=== PATIENT | female | born 1940 | race Caucasian/White ===

== ENCOUNTER 2017-05-01 08:00 | Day surgery (SDC) | payer MEDICARE, OTHER ==
[~2017-05-01] VITALS: Ht 157.5 cm; Wt 69.8 kg
[~2017-05-01 08:00] MED LIST: ALENDRONATE SOD10 MG PO; ALEVE220 M1; ASPIR 8181 MG PO; BACTRIM DS TAB1 EACH PO; CALCIUM600 MG PO; FENOFIBRATE145 MG PO; FENOGLIDE120 MG PO; FENOGLIDE40 MG PO; FISH OIL500 MG PO; FLAGYL500 MG PO; FOSAMAX5 MG PO; LISINOPRIL-HCT1 EACH PO; LUTEIN20 M1 PO; MELOXICAM15 MG PO; MULTI VITAMIN1 EACH PO; OXYCODONE HCL5 MG PO; PREVACID30 MG PO; PROBIOTIC1 EAC1 PO; VITAMIN B12-FO1 EACH; VITAMIN C1000 M1 PO; VITAMIN D1000 UNIT PO; ZESTRIL20 MG PO
[2017-05-01] MEDS ORDERED: NITROSTAT0.4 MG SL (08:29)
--- NOTE | 2017-05-01 09:57 | NUR ---
05/01/17 0957 Bre Brown 4892-PATIENT ARRIVED TO PACU ON 3L NC O2 SAT 100% PATIENT REACTIVE TO VOICE OPENS EYES. DENIES PAIN OR NAUSEA. ABDOMEN SOFT.
--- NOTE | 2017-05-01 11:35 | OR ---
[facility] [address] [facility] [place] [address] Signed DATE OF OPERATION: 05/01/2017 SURGEON: Ambika Flaherty MD PREOPERATIVE DIAGNOSES: 1. Recent treated recurrent diverticulitis. 2. Family history of colon cancer. POSTOPERATIVE DIAGNOSIS: Sigmoid diverticulosis. No evidence of polyps, cancer, or ongoing inflammation. PROCEDURE: Total colonoscopy to cecum. ANESTHESIA: Intravenous sedation, fentanyl 150 mcg, Versed 5 mg. INDICATION: This 77-year-old white woman is a patient of Sudhir Hale. She has a family history of colon cancer in the past. She was treated for an episode of acute diverticulitis in February and has clinically resolved her symptoms with outpatient therapy of Flagyl and Cipro and a low-fiber diet. She underwent colonoscopy in 2012, confirming diverticulosis. Family history of colon cancer is rather extensive in several male family members [place]. She has recovered from her diverticulitis well and she is now to undergo colonoscopy. She understands the risks of bleeding, infection, and perforation and wished to proceed. FINDINGS: The prep was excellent. Complete colonoscopy was undertaken to the cecum. Passage beyond the hepatic flexure was challenging. It was accomplished with all due care. Numerous diverticula were noted in the sigmoid and left colon. There was no sign of polyps, diverticular formation, residual inflammation of any other kind, and no other problem. DESCRIPTION OF PROCEDURE: The patient was brought to the endoscopy suite and placed in lateral decubitus position given intravenous sedation to the point of slurred speech and nystagmus. Digital rectal examination was normal. An Olympus video colonoscope was passed in the rectum and manipulated throughout the colon ultimately to pass into the hepatic flexure. Passage beyond this area was a bit challenging, ultimately requiring abdominal wall Electronically Signed By: AMBIKA FLAHERTY MD 05/01/17 1135 PATIENT NAME: ALBER VALERIO OPERATIVE REPORT DATE OF : 38 REPORT #: [id number] PHYSICIAN: AMBIKA FLAHERTY MD PCP: SUDHIR HALE REPORT IS CONFIDENTIAL AND NOT TO BE RELEASED WITHOUT AUTHORIZATION [facility] [address] [place], [place] [address] Signed stabilization and so on. Ultimately, it was accomplished safely. The cecum was fully intubated. Irrigation was undertaken and scope was carefully withdrawn. Examination throughout showed no sign of polyps, only diverticular changes of the sigmoid and left colon. Retroflexed view of the rectum was normal as well. The scope was removed. The patient was taken to recovery room in good condition. CONCLUDING DIAGNOSIS: Diverticulosis, sigmoid and left colon. No evidence of polyps. PLAN: High-fiber diet is now recommended. She will follow up as needed otherwise and return to the ongoing care of RYAN Flowers. MD SARA Mortensen/DAYSI /[id number] cc: RYAN Flowers Copies: SUDHIR HALE ~ Electronically Signed By: AMBIKA FLAHERTY MD 05/01/17 1135 PATIENT NAME: VALERIOALBERAROLDO MENSAH OPERATIVE REPORT DATE OF : 38 REPORT #: [id number] PHYSICIAN: AMBIKA FLAHERTY MD PCP: SUDHIR HALE REPORT IS CONFIDENTIAL AND NOT TO BE RELEASED WITHOUT AUTHORIZATION
== END 2017-05-01 11:15 | disposition home or self-care (01) ==
LOC: DS 08:00 → OPS 08:00 → DS 09:00 → OPS 09:00
PROVIDERS: Surgery
PROC: 0DJD8ZZ Inspection of Lower Intestinal Tract, Via Natural or Artificial Opening Endoscopic (ICD-10-PCS; principal; 2017-05-01 09:00)
DX: Z12.11 Encounter for screening for malignant neoplasm of colon (principal); K57.30 Diverticulosis of large intestine without perforation or abscess without bleeding; Z88.8 Allergy status to other drugs, medicaments and biological substances; Z98.890 Other specified postprocedural states; Z90.710 Acquired absence of both cervix and uterus; Z80.0 Family history of malignant neoplasm of digestive organs
CPT/HCPCS: G0105; 99153; G0500; J2250; J3010; J7120

== ENCOUNTER 2017-06-27 09:57 | Emergency (ER) | payer MEDICARE, OTHER ==
[~2017-06-27] VITALS: Ht 157.5 cm; Wt 69.8 kg
[~2017-06-27 09:57] MED LIST changes: +NITROSTAT0.4 MG SL
--- NOTE | 2017-06-27 15:09 | EKG ---
[facility] [address] [facility] [place], [place] [address] Signed Normal sinus rhythm Normal ECG No previous ECGs available Confirmed by MANJINDER GODFREY MD ([id number]) on 06/27/2017 3:09:05 PM Electronically Signed By: MANJINDER GODFREY MD 06/27/17 1509 PATIENT NAME: ALBER VALERIO Electrocardiogram DATE OF : 38 PHYSICIAN: MANJINDER GODFREY MD REPORT #: [id number] REPORT IS CONFIDENTIAL AND NOT TO BE RELEASED WITHOUT AUTHORIZATION
== END 2017-06-27 13:39 | disposition home or self-care (01) ==
LOC: ED 09:57
DX: R07.9 Chest pain, unspecified (principal); I10 Essential (primary) hypertension; M81.0 Age-related osteoporosis without current pathological fracture; Z88.8 Allergy status to other drugs, medicaments and biological substances; Z88.2 Allergy status to sulfonamides; Z88.5 Allergy status to narcotic agent; Z79.82 Long term (current) use of aspirin; Z79.899 Other long term (current) drug therapy
CPT/HCPCS: 36415; 71045; 80053; 84484; 85025; 93005; 93010; 99284

== ENCOUNTER 2019-03-30 07:01 | Emergency (ER) | payer MEDICARE, OTHER ==
[~2019-03-30] VITALS: Ht 157.5 cm; Wt 69.8 kg
[~2019-03-30 07:01] MED LIST changes: +GABAPENTIN100 MG PO; +TRAMADOL HCL50 MG PO
[2019-03-30] MEDS ORDERED: NITROGLYCERIN0.4 MG SL (12:07)
--- NOTE | 2019-03-31 11:15 | EKG ---
[facility] [address] [facility] [place] [address] Signed Normal sinus rhythm Normal ECG When compared with ECG of 08-OCT-2018 13:56, Minimal criteria for Anterior infarct are no longer present T wave amplitude has increased in Lateral leads Confirmed by CODY DIAZ DO ([id number]) on 03/31/2019 11:15:22 AM Electronically Signed By: CODY DIAZ DO 03/31/19 1115 PATIENT NAME: ALBER VALERIO Electrocardiogram DATE OF : 38 PHYSICIAN: CODY DIAZ DO REPORT #: [id number] REPORT IS CONFIDENTIAL AND NOT TO BE RELEASED WITHOUT AUTHORIZATION
== END 2019-03-30 12:16 | disposition home or self-care (01) ==
LOC: ED 07:01
DX: R07.9 Chest pain, unspecified (principal); I10 Essential (primary) hypertension; E78.00 Pure hypercholesterolemia, unspecified; Z88.8 Allergy status to other drugs, medicaments and biological substances; Z88.2 Allergy status to sulfonamides; Z88.5 Allergy status to narcotic agent; Z79.899 Other long term (current) drug therapy; Z79.82 Long term (current) use of aspirin
CPT/HCPCS: 71045; 80053; 83735; 84484; 85025; 93005; 93010; 99285-25

== ENCOUNTER 2020-04-26 08:50 | Day surgery (SDC) | payer MEDICARE, OTHER ==
[~2020-04-26] VITALS: Ht 157.5 cm; Wt 68.2 kg
[~2020-04-26 08:50] MED LIST changes: +NITROGLYCERIN0.4 MG SL
--- NOTE | 2020-04-26 12:08 | NUR ---
PATIENT RETURNS FROM IMAGING VIA WHEELCHAIR. I ASSIST HER TO THE BATHROOM AND SHE DOES WELL WITH THAT. SHE IS BACK IN THE STRETCHER AND DR FLAHERTY PRESENTS TO RICKY HER BREAST. IV RECONNECTED AND CALL LIGHT IS WITHIN REACH. DAUGHTER AT THE BEDSIDE.
--- NOTE | 2020-04-26 14:12 | NUR ---
04/26/20 1412 Bre Brown 1406-PATIENT ARRIVED TO PACU ON 6L MASK REACTIVE TO VOICE AND NAME NODDING HEAD NOT FOLLOWING COMMANDS EYES CLOSED. IVF INFUSING SR. 3 INCISION SITES TO RIGHT BREAST CDI. 1411-PATIENT COUGHING HEAD OF BED ELEVATED PATIENT SUCTIONED THIN CLEAR SPUTUM. 6L MASK RR EVEN. PATIENT VERY DROWSY EYES CLOSED.
[2020-04-26] MEDS ORDERED: OXYCODON-ACETA1 EAC2 PO (14:33)
[2020-04-26] MEDS ORDERED: IBUPROFEN600 MG PO (14:33)
[2020-04-26] MEDS ORDERED: ACETAMINOPHEN500 MG PO (14:34)
--- NOTE | 2020-04-26 15:06 | NUR ---
LE 1445: PT ARRIVES ON UNIT FROM PACU VIA STRETCHER. BEDSIDE REPORT RECEIVED AND CARE ASSUMED BY THIS AUTHOR. PT ALERT AND ORIENTED AND CONVERSES WITH RN. CAROL ANN PO INTAKE AND DENIES NAUSEA. DRESSING X3 INTACT WITH ERASER SIZED AMOUNT OF SHADOWING ON EACH ONE. PT REPORTS 5/10 PAIN. RX ADMINISTERED ORDERED AND ICE PACK APPLIED TO SITE. SCDS IN PLACE. IV CONVERTED TO SL. DAUGHTER ATTENTIVE AT THE BEDSIDE. NO NEEDS VOICED, CALL LIGHT WITHIN REACH
--- NOTE | 2020-04-26 15:52 | NUR ---
PT ALERT AND ORIENTED AND COMPLETING SNACK WHILE VISITING WITH DAUGHTER AT THE BEDSIDE. VSS, DRESSINGS REMAINS UNCHANGED. SCDS IN PLACE. PT TO TRY TO VOID AFTER FINISHES SNACK. NO NEEDS VOICED, CALL LIGHT WITHIN REACH
--- NOTE | 2020-04-26 16:53 | NUR ---
DAUGHTER RETURNS FROM PHARMACY. VSS, CMS WNL. PT ALERT AND ORIENTED. SL D/C'D WITH CATH TIP INTACT AND PRESSURE APPLIED TO SITE. DRESSING X3 REMAIN UNCHANGED. PT'S DAUGHTER AT THE BEDSIDE TO HELP HER DRESS FOR D/C. NO NEEDS VOICED AT THIS TIME
--- NOTE | 2020-04-26 17:15 | NUR ---
LE 1510: D/C INSTRUCTIONS PROVIDED AND DISCUSSED ORDERED. PT VOICES UNDERSTANDING AND DENIES QUESTIONS AT THIS TIME. ENCD TO CALL OR RETURN WITH ANY CONCERNS. WHEELED OFF OF UNIT IN W/C BY THIS RN. TRANSFERS INTO VEHICLE INDEPENDENTLY. RESP EVEN AND UNLABORED. NO PHYSICAL S/S OF DISTRESS AT THIS TIME
--- NOTE | 2020-04-27 19:22 | OR ---
[facility] [address] [place], [place] [address] Signed DATE OF OPERATION: 04/26/2020 SURGEON: Ambika Flaherty MD PREOPERATIVE DIAGNOSIS: Right upper outer quadrant infiltrating ductal breast carcinoma. POSTOPERATIVE DIAGNOSIS: 1. Right upper outer quadrant infiltrating ductal breast carcinoma. 2. Negative sentinel lymph nodes on frozen pathology. 3. Large deeply pigmented inframammary crease skin lesion (excised). PROCEDURE: 1. Injection of methylene blue dye for sentinel lymph node identification, right breast. 2. Right deep axillary sentinel lymph node biopsies. 3. Right needle localized partial mastectomy upper outer quadrant. 4. Excision of pigmented skin lesion, right breast 6 cm excision size. ANESTHESIA: General endotracheal, Hair Flor CRNA INDICATIONS: This 80-year-old white woman, she is a patient of RYAN Flowers. She was found on mammogram to have an abnormality in the upper outer aspect of the breast, which was then biopsied under image guidance by Dr. Zacarias, which essentially ablated most of the mass, but did leave microcalcifications in place. A marker was left in place. The pathology report confirmed infiltrating ductal breast carcinoma, it is considered grade 2/3 with micropapillary features. There is no palpable lesion associated with the mass. There is no clinical adenopathy. She is admitted at this time to undergo right needle localized excision of the breast tumor as a partial mastectomy anticipating radiation therapy following that as well as sentinel lymph node biopsy, possible axillary dissection. The risks of bleeding, infection, need for complete axillary dissection, cosmetic deformity, and need for other indicated procedures were all reviewed with her. She understands and wished to proceed. FINDINGS: Relatively large nearly 6 cm deeply pigmented skin lesion was noted in the inframammary crease, which was additionally excised at conclusion of the procedure. Clyde lymph node identification relied primarily on radionuclide as the methylene blue dye did not Electronically Signed By: AMBIKA FLAHERTY MD 03/19/21 1922 PATIENT NAME: ALBER VALERIO OPERATIVE REPORT DATE OF : 38 REPORT #: [id number] PHYSICIAN: AMBIKA FLAHERTY MD PCP: SUDHIR MARTINEZ REPORT IS CONFIDENTIAL AND NOT TO BE RELEASED WITHOUT AUTHORIZATION [facility] [address] [place], [place] [address] Signed uptake to the node to any appreciable extent. As regards to the breast lesion itself, it was well localized with needle localization technique and wide resection undertaken with a clinically negative margin. It was found to be in the excised specimen as anticipated. Frozen pathology of the sentinel lymph node showed no evidence of metastatic disease. Complete excision of the pigmented lesion was accomplished as well. DESCRIPTION OF PROCEDURE: The patient was brought to the operating room after being received from Radiology suite with a wire emanating from the upper outer aspect of the right breast. Clyde lymph node identification with radionuclide had been undertaken as was localization of the lesion in the upper outer aspect of the right breast. She was given a general anesthetic. Preoperative antibiotic Ancef was given. Sequential compression device stockings used and heparin subcutaneously administered. Injection of 1.5 mL of methylene blue dye was injected in the subepithelial space in the upper outer aspect near the areolar margin on the right side. Wire emanated from the upper outer aspect of the right breast. The breast and chest wall, axilla were prepared with a spray Betadine solution and draped sterilely. A C-Trak gamma probe device was covered with a sterile sleeve and interrogation of the right axilla undertaken in the area of maximum uptake identified and a transverse incision was made. Dissection was carried through subcutaneous tissue with sharp and blunt electrocautery dissection. Manipulation of the wound with a tonsil clamp as well as Army-Mimbres retractors was undertaken, but no blue dye lymphatics were identified by that point. Using primarily the C-Trak probe, an area of lymph node tissue was identified and excised and had avid uptake of the radionuclide. This was sent as sentinel lymph node #1. Further dissection was undertaken in the area lateral and inferior was identified again with no blue dye uptake, but certainly with avid signal and this was excised in this node was a bit larger at least 1.5 cm or possibly 2 cm in size. This had very avid uptake of the radionuclide and was sent as sentinel lymph node #2. Additional probing of the axilla showed no other significant activity and the wound was then packed with gauze. Attention was turned towards the breast itself while frozen pathology of sentinel lymph nodes was undertaken. The wire was projected to course inferiorly and slightly laterally from its entry point. An incision was made in the upper outer aspect. Dissection was carried through the dermis with sharp dissection and the wire withdrawn and brought into the wound itself. Electronically Signed By: AMBIKA FLAHERTY MD 04/27/201921 PATIENT NAME: ALBER VALERIO OPERATIVE REPORT DATE OF : 38 REPORT #: [id number] PHYSICIAN: AMBIKA FLAHERTY MD PCP: SUDHIR MARTINEZ REPORT IS CONFIDENTIAL AND NOT TO BE RELEASED WITHOUT AUTHORIZATION [address] [address] Signed An Allis clamp was used to grasp the parenchyma and using meticulous care, wide resection was undertaken of the breast tissue using the wire as a guide. A generous excision was undertaken with a quite obviously clinically negative margin. The specimen was oriented with a short stitch superior and long stitch laterally and passed for specimen radiograph. Irrigation was undertaken. Hemostasis was assured with electrocautery. Parenchymal reapproximation was undertaken with interrupted 2-0 Vicryl suture and an interrupted 2-0 Vicryl in deep dermal layer. Skin was closed with running subcuticular 3-0 Vicryl. Steri-Strips were applied as was an Acticoat dressing. By this point, frozen pathology returned confirming the sentinel nodes had no evidence of metastatic disease. Axillary wound was closed after inspection showing good hemostasis with interrupted 2-0 Vicryl and running subcuticular 3-0 Vicryl. Steri-Strips were applied to that wound as well as an Acticoat dressing. At that point, the specimen radiograph findings returned confirming the specimen did incorporate the microcalcifications and tumor marker as expected. A large pigmented lesion in the inframammary crease was deemed appropriate for excision in part related to its uncertainty as to malignancy, but more dominantly as to the possibility of confounding the future interpretations of radiograph for monitoring of malignancy in the future. On that basis, excision was deemed appropriate. Excision was undertaken with a clinically negative margin. Dissection deeply was below the dermal layer into the subcutaneous space. The wound was closed with interrupted 2-0 Vicryl as well as running subcuticular 3-0 Vicryl. Steri-Strips were applied and another Acticoat dressing applied. The patient tolerated the procedure well, was ultimately extubated and transferred to the recovery room in good condition and suffered no complication. Sponge, needle, and instrument counts reported as correct x3. MD SARA Mortensen/DAYSI /[id number] cc: Milton Nicholas MD, PH.D. Silke Zacarias MD Electronically Signed By: AMBIKA FLAHERTY MD 04/27/201921 PATIENT NAME: ALBER VALERIO OPERATIVE REPORT DATE OF : 38 REPORT #: [id number] PHYSICIAN: AMBIKA FLAHERTY MD PCP: USDHIR MARTINEZ REPORT IS CONFIDENTIAL AND NOT TO BE RELEASED WITHOUT AUTHORIZATION [facility] [address] [place] [id number] Signed RYAN Flowers MD Copies: MILTON NICHOLAS CYNTHIA SUE MD HARRIES, LINDA PA QUACKENBUSH, ROBERT C MD ~ Electronically Signed By: AMBIKA FLAHERTY MD 04/27/201921 PATIENT NAME: ALBER VALERIO OPERATIVE REPORT DATE OF : 38 REPORT #: [id number] PHYSICIAN: AMBIKA FLAHERTY MD PCP: SUDHIR MARTINEZ REPORT IS CONFIDENTIAL AND NOT TO BE RELEASED WITHOUT AUTHORIZATION
--- NOTE | 2020-05-03 17:10 | PATH ---
[facility] [address] [facility] [address] [place], [place] [address] Signed SPECIMEN(S): A SENTINEL LYMPH NODE, RIGHT SPECIMEN(S): B SENTINEL LYMPH NODE, RIGHT SPECIMEN(S): C RIGHT BREAST, UPPER OUTER SPECIMEN(S): D RIGHT BREAST SPECIMEN SOURCE: A. SENTINEL LYMPH NODE, RIGHT B. SENTINEL LYMPH NODE, RIGHT C. RIGHT BREAST, UPPER OUTER D. RIGHT BREAST CLINICAL HISTORY: Malignant neoplasm of upper-outer quadrant of right breast. Specimen Time to Fixation- 04/26/2020 1:39:00 PM FROZEN SECTION DIAGNOSIS: A. Right sentinel lymph node: - Negative for carcinoma. (Dr. Bazzi, 04/26/20, 1312) B. Right sentinel lymph node #2: - Negative for carcinoma. (Dr. Bazzi, 04/26/20, 131) Frozen section diagnoses called to Dr. Issa at 1345. AI (under the direct supervision of a pathologist) The Gross Description was prepared using a voice recognition system. The report was reviewed for accuracy; however, sound-alike word errors, addition and/or deletions may occur. If there is any question about this report, please contact Client Services. FINAL PATHOLOGIC DIAGNOSIS: A. Delta lymph node, right axilla, excisional biopsy: - Two lymph nodes with no evidence of malignancy (0/2). - See Microscopic. B. Delta lymph node #2, right axilla, excisional biopsy: - One lymph node with no evidence of malignancy (0/1). - See Microscopic. C. 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 - Tumor size: 1.2 x 1.0 x 0.7 cm. - Histologic type: Invasive micropapillary carcinoma. - Histologic grade (Sb histologic score): - Glandular (acinar)/tubular differentiation: Score 3. PATIENT NAME: ALBER VALERIO PATHOLOGY DATE OF : 38 REPORT #: [id number] PHYSICIAN: RAISA PATHOLOGY PCP: SUDHIR MARTINEZ REPORT IS CONFIDENTIAL AND NOT TO BE RELEASED WITHOUT AUTHORIZATION [facility] [address] [place], [place] [address] Signed - Nuclear pleomorphism: Score 3. - Mitotic rate: Score 1. - Overall grade: Grade 2 of 3 (total score 7 of 9). - Tumor focality: Single focus of invasive carcinoma. - Ductal carcinoma in situ (DCIS): Present, negative for extensive intraductal component (EIC). - Architectural patterns: Solid and cribriform. - Nuclear grade: Grade 3 (high). - Necrosis: Not identified. - Margins: - Invasive carcinoma margins: Uninvolved by invasive carcinoma. - Lateral margin: 2.5 mm. - Posterior margin: 9 mm. - Anterior, superior, inferior, medial margins: Greater than 10 mm. - DCIS margins: Uninvolved by DCIS. - Posterior margin: 0.6 mm. - Lateral margin: 8 mm. - Anterior, superior, inferior, medial margins: Greater than 10 mm. - Regional lymph nodes: Uninvolved by tumor cells. - Total number of lymph nodes examined: 3. - Number of sentinel nodes examined: 2. - Treatment effect in the breast: No known pre-surgical therapy. - Lymphovascular invasion: Not identified. - Breast biomarker testing: Please refer to previously performed studies ([id number]), reported as ER positive, WV positive, HER2 negative (1+) by IHC, and Ki-67 proliferation index of 10.4%. - Additional pathologic findings: Biopsy site changes associated with carcinoma, fibrocystic changes. - Microcalcifications: Present within DCIS and fibroadenoma involved by carcinoma. - Pathologic stage classification (pTNM, AJCC 8th edition): pT1c (sn) pN0. D. Skin, right breast, excision: - Seborrheic keratosis. COMMENT: As part of [employer]' Quality Improvement Program, selected slides of this case were reviewed by another member of our pathology staff. NAL:cml:[id number] PATIENT NAME: ALBER VALERIO PATHOLOGY DATE OF : 38 REPORT #: [id number] PHYSICIAN: [employer] PATHOLOGY PCP: SUDHIR MARTINEZ REPORT IS CONFIDENTIAL AND NOT TO BE RELEASED WITHOUT AUTHORIZATION [facility] [address] [place] [id number] Signed MICROSCOPIC EXAMINATION: Histologic sections of all submitted blocks are examined by light microscopy. Immunohistochemical stains (with appropriately staining controls) were performed: A., B. Pancytokeratin (AE1/AE3) on each strategic partnership representative section of the lymph nodes and confirm the absence of tumor cells. C. SMMHC and p63 (C4) highlight the myoepithelial cells surrounding the foci of DCIS, but also demonstrate that myoepithelial cells are attenuated around foci that are morphologically compatible with DCIS on HE stain, and thus, interpreted as DCIS. CK5/6 and ER (C5) demonstrate patchy ER positivity and mosaic CK5/6 staining in an area of UDH; myoepithelial cells are retained in this focus of UDH with p63 stain. These findings, together with the gross examination, support the pathologic diagnosis. GROSS DESCRIPTION: Four specimens are received in four containers, labeled "ER." A. The specimen, labeled "ER A," and designated on the requisition "right sentinel lymph node," is received fresh for frozen section diagnosis and consists of two pieces of yellow fibrofatty tissue. The first is tagged with a suture, 1.7 x 1.3 x 0.8 cm, inked black, and bisected. The cut surface of the specimen reveals a 1.1 cm in greatest dimension, pink-garcia lymph node candidate. The second is 1.2 x 0.7 x 0.5 cm, untagged, bisected and remains uninked. The cut surface of the specimen reveals a pink-garcia, 0.8 cm in greatest dimension lymph node candidate. A portion of each piece is submitted for frozen section diagnosis in FSA1. The remaining specimen is submitted as follows: A1 remainder of frozen section A2 remainder black inked piece A3 remainder of uninked piece Cold ischemic time: Grossly indeterminate due to lack of information Formalin fixation time: Approximately 20 hours B. The specimen, labeled "ER, B," and designated on the requisition "right sentinel lymph node #2," is received fresh for frozen section diagnosis and consists of a 3.5 x 2.0 x 0.8 cm piece of fibrofatty tissue that is tagged with a suture. The specimen is bivalved to reveal a 2.0 cm in greatest dimension, partially fat replaced, [id number] lymph node candidate. A portion of the lymph PATIENT NAME: ALBER VALERIO PATHOLOGY DATE OF : 38 REPORT #: [id number] PHYSICIAN: RAISA PATHOLOGY PCP: SUDHIR MARTINEZ REPORT IS CONFIDENTIAL AND NOT TO BE RELEASED WITHOUT AUTHORIZATION [facility] [address] [place], [place] [address] Signed node candidate is submitted for frozen section diagnosis. An additional lymph node candidate is not grossly identified. The remaining specimen is submitted as follows: B1 remainder of frozen section B2-B5 remainder of specimen Cold ischemic time: Grossly indeterminate due to lack of information Formalin fixation time: Approximately 20 hours C. The specimen, labeled "ER, C," and designated on the requisition "right upper outer quadrant of right breast," is received in formalin and consists of a 40 g, yellow, lobulated, 6.4 x 5.5 x 2.6 cm lumpectomy specimen that is oriented with a short suture indicating superior and a long suture indicating lateral. Protruding from the superior-deep aspect of the specimen is a silver metallic localization wire. The specimen is inked as follows: Superior = blue; inferior = green; anterior = yellow; posterior = black; medial = red; lateral = orange. The specimen is sectioned from superior to inferior into 10 slices reveal an ill-defined, garcia-white, 1.2 x 1.0 x 0.7 cm, indurated lesion (slice 4-6) that is 0.2 cm from the deep margin, 0.2 cm from the lateral margin, 1.2 cm from the anterior margin, 1.3 cm from the superior margin, 1.4 cm from the medial margin, and 2.8 cm from the inferior margin. The end of the localization wire is found within the lesion, however a biopsy marker is not grossly identified. The remaining parenchyma is comprised of yellow, fibrofatty and somewhat dense, garcia-white fibroglandular tissue. Fibroglandular tissue comprises approximately 5% of the remaining parenchyma. An additional discrete mass/lesion is not grossly identified. [place] sections are submitted as follows: C1-C3 slice 4 trisected C4-C7 slice 5 trisected (C5-C6 is a bivalved section) C8-C10 trisected slice 6 C11 perpendicular sections of the superior end (slice one) C12 perpendicular sections of the inferior and (slice 10) C13-C14 strategic partnership representative of remaining parenchyma (slice 8 and 2 respectively) Cold ischemic time: Approximately 12 minutes per requisition form Formalin fixation time: Approximately 20 hours A judy-shaped clip is located in cassette C4 per histology D. The specimen, labeled "ER, D," and designated on the requisition "right breast pigmented skin lesion 6 cm," is received in formalin and consists of an unoriented, garcia, 4.3 x 2.5 by up to 1.9 cm, PATIENT NAME: ALBER VALERIO PATHOLOGY DATE OF : 38 REPORT #: [id number] PHYSICIAN: RAISA PATHOLOGY PCP: SUDHIR MARTINEZ REPORT IS CONFIDENTIAL AND NOT TO BE RELEASED WITHOUT AUTHORIZATION [facility] [address] [place], [place] [address] Signed ellipsoid skin segment with an ill-defined, brown, cobblestoned, 3.5 x 2.5 x 0.2 cm, soft skin lesion that grossly appears to involve the peripheral skin margin. The resection margin is inked blue and the specimen is cross-sectioned. The lesion does not grossly appear to involve subcutaneous tissue which is garcia-white to yellow and grossly unremarkable. Presented sections are submitted in three cassettes (D1-D3). ADDITIONAL NOTES: Immunohistochemical and/or in situ hybridization studies were performed on this case with the appropriate positive controls that react as expected. This test was developed and its performance characteristics determined by [facility] [facility]. It has not been cleared or approved by the U.S. Food and Drug Administration. The FDA has determined that such clearance or approval is not necessary. This test is used for clinical purposes. It should not be regarded as investigational or for research. [facility] [facility] is certified under the Clinical Laboratory Improvement Amendments of 1988 (CLIA) as qualified to perform high complexity clinical laboratory testing. PERFORMING LABORATORY: [place] [address] (CLIA# [id number]). The technical component was performed by [facility] [address] (Planning Intern: Carlie Cherry MD; CLIA# [id number]). [facility] [address] [place] [address] (CLIA# [id number]). Diagnostician: Jemma Sims MD Pathologist Electronically Signed 05/03/2020 Copies: ~ PATIENT NAME: ALBER VALERIO PATHOLOGY DATE OF : 38 REPORT #: [id number] PHYSICIAN: RAISA PATHOLOGY PCP: SUDHIR MARTINEZ REPORT IS CONFIDENTIAL AND NOT TO BE RELEASED WITHOUT AUTHORIZATION
== END 2020-04-26 17:10 | disposition home or self-care (01) ==
LOC: DS 08:50 → OPS 08:50 → EDSTATUS 10:00 → MAM 10:00 → OPS 17:10
PROVIDERS: ATTEND Surgery
PROC: 0HB5XZZ Excision of Chest Skin, External Approach (ICD-10-PCS; 2020-04-26)
PROC: 0HBT0ZZ Excision of Right Breast, Open Approach (ICD-10-PCS; principal; 2020-04-26 12:00)
PROC: 07B50ZX Excision of Right Axillary Lymphatic, Open Approach, Diagnostic (ICD-10-PCS; 2020-04-26 12:00)
PROC: C71LYZZ Planar Nuclear Medicine Imaging of Upper Chest Lymphatics using Other Radionuclide (ICD-10-PCS; 2020-04-26 12:00)
DX: C50.411 Malignant neoplasm of upper-outer quadrant of right female breast (principal); L82.1 Other seborrheic keratosis; I10 Essential (primary) hypertension; K57.30 Diverticulosis of large intestine without perforation or abscess without bleeding; Z17.0 Estrogen receptor positive status [ER+]; Z80.0 Family history of malignant neoplasm of digestive organs
CPT/HCPCS: 00404; 19281; 38792; 76098; 88305; 88307; 88341; 88342; A9270; A9541; J0131; J0690; J1100; J1644; J1885; J2405; J2704; J3010; J7121; Q9968